=== PATIENT | male | born 1940 | race Caucasian/White ===

== ENCOUNTER 2016-05-04 09:30 | Day surgery (SDC) | payer BC ==
--- NOTE | ~2016-05-04 | EGD ---
EGD REPORT [facility] [address] [place] [address] NAME: MUKESH SANCHEZ : [birth year] STATUS : REG [facility]#: [id number] AGE: 75 ADM/REG DATE : 05/04/16 MR#: [id number] REPORT SERV DATE: 05/04/16 DICTATED BY: JUDIE FORREST DATE: 05/04/16 REPORT STATUS : Draft [facility]ANS[facility]IBED [facility]: [facility] DATE: 05/04/16 Endoscopy Center Patient Name: Mukesh Sanchez Date of : 1940 Attending MD: SANTA FORREST MD Procedure Date No Time: 05/04/2016 Procedure: Upper GI endoscopy Indications: Follow-up of Ahuja's esophagus Referring MD: JORDAN SCANLON MD Medicines: See the Anesthesia note for documentation of the administered medications Complications: No immediate complications. Estimated blood loss: Minimal. Procedure: Pre-Anesthesia Assessment: - ASA Grade Assessment: III - A patient with severe systemic disease. - Prior to the procedure, a History and Physical was performed, and patient medications and allergies were reviewed. The patient's tolerance of previous anesthesia was also reviewed. The risks and benefits of the procedure and the sedation options and risks were discussed with the patient. All questions were answered, and informed consent was obtained. Prior Anticoagulants: The patient has taken aspirin and Plavix (clopidogrel), last doses were 1 day prior to procedure. After reviewing the risks and benefits, the patient was deemed in satisfactory condition to undergo the procedure. After obtaining informed consent, the endoscope was passed under direct vision. Throughout the procedure, the patient's blood pressure, pulse, and oxygen saturations were monitored continuously. The GIF [id number] was introduced through the mouth, and advanced to the second part of duodenum. The upper GI endoscopy was accomplished without difficulty. The patient tolerated the procedure well. Findings: The examined duodenum was normal. A medium-sized hiatus hernia was present. No other significant abnormalities were identified in a careful examination of the stomach. The cardia and gastric fundus were normal on retroflexion. The lower third of the esophagus was moderately tortuous. 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 The EGD REPORT [address] [address] NAME: MUKESH SANCHEZ : [birth year] STATUS : REG [facility]#: [id number] AGE: 75 ADM/REG DATE : 05/04/16 MR#: [id number] REPORT SERV DATE: 05/04/16 DICTATED BY: JUDIE FORREST DATE: 05/04/16 REPORT STATUS : Draft TRANSCRIBED BY: [employer] DATE: 05/04/16 maximum longitudinal extent of these mucosal changes was 4 cm in length. Mucosa was biopsied with a cold forceps for histology in a targeted manner at intervals of 2 cm in the lower third of the esophagus. A total of 3 specimen bottles were sent to pathology. Estimated blood loss was minimal. Impression: - Normal examined duodenum. - Hiatus hernia. - Tortuous esophagus. 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 Biopsied. Recommendation: - Patient has a contact number available for emergencies. The signs and symptoms of potential delayed complications were discussed with the patient. Return to normal activities tomorrow. Written discharge instructions were provided to the patient. - Regular diet. - Discharge patient to home. - Continue present medications. - Await pathology results. - Repeat the upper endoscopy in 3 years for surveillance. Procedure Code(s): --- Professional --- 10736, Esophagogastroduodenoscopy, flexible, transoral; with biopsy, single or multiple Diagnosis Code(s): --- Professional --- K22.70, Ahuja's esophagus without dysplasia K44.9, Diaphragmatic hernia without obstruction or gangrene Q39.9, Congenital malformation of esophagus, unspecified CPT copyright 2013 [employer]. All rights reserved. The codes documented in this report are preliminary and upon air conditioning sheet metal installer review may be revised to meet current compliance requirements. SANTA FORREST MD 05/04/2016 10:47 AM This report has been signed electronically. Number of Addenda: 0 Note Initiated On: 05/04/2016 10:25 AM Scope Withdrawal Time 0 hours 0 minutes 0 seconds EGD REPORT [facility] [address] [address] NAME: MUKESH SANCHEZ : [birth year] STATUS : REG [facility] PAT#: [id number] AGE: 75 ADM/REG DATE : 05/04/16 MR#: [id number] REPORT SERV DATE: 05/04/16 DICTATED BY: JUDIE FORREST DATE: 05/04/16 REPORT STATUS : Draft TRANSCRIBED BY: [employer] DATE: 05/04/16 [address] [id number]
[~2016-05-04 09:30] MED LIST: CRESTOR20 MG PO; FLOMAX4 PO; PLAVIX PO; PROTONIX PO; TETRACYCLINE500 MG PO
== END 2016-05-04 23:59 | disposition home or self-care (01) ==
LOC: DMU 09:30
PROVIDERS: Internal Medicine Gastroenterology
PROC: 0DB38ZX Excision of Lower Esophagus, Via Natural or Artificial Opening Endoscopic, Diagnostic (ICD-10-PCS; principal; 2016-05-04 10:30)
DX: K22.70 Barrett's esophagus without dysplasia (principal); Q39.9 Congenital malformation of esophagus, unspecified; K44.9 Diaphragmatic hernia without obstruction or gangrene; K21.9 Gastro-esophageal reflux disease without esophagitis; E78.00 Pure hypercholesterolemia, unspecified; I25.10 Atherosclerotic heart disease of native coronary artery without angina pectoris; G47.30 Sleep apnea, unspecified; Z98.890 Other specified postprocedural states; Z79.01 Long term (current) use of anticoagulants; Z95.5 Presence of coronary angioplasty implant and graft; Z79.899 Other long term (current) drug therapy
CPT/HCPCS: 88305